=== PATIENT | male | born 1970 | race Caucasian/White ===

== ENCOUNTER → 2020-05-23 09:20 | Outpatient (BNVA) | payer OTHER, SELFPAY | PROVIDERS: Visit Provider Registered Nurse | DX: Z79.899 Other long term (current) drug therapy (principal); F25.0 Schizoaffective disorder, bipolar type; F41.1 Generalized anxiety disorder; G25.79 Other drug induced movement disorders | CPT/HCPCS: 36415; 80053; 80061; 83036; 84443; 85025 ==

== ENCOUNTER → 2020-05-30 11:56 | Outpatient (BNVA) | payer OTHER, SELFPAY | PROVIDERS: Visit Provider Registered Nurse | DX: G25.79 Other drug induced movement disorders (principal); F41.1 Generalized anxiety disorder; F25.0 Schizoaffective disorder, bipolar type; Z79.899 Other long term (current) drug therapy | CPT/HCPCS: 36415; 80053; 80061; 83036; 83721; 84443; 85025 ==

== ENCOUNTER → 2020-06-08 10:07 | Outpatient (BNVA) | payer OTHER, SELFPAY | PROVIDERS: Referring Provider Registered Nurse; Visit Provider Registered Nurse | DX: Z79.899 Other long term (current) drug therapy (principal) | CPT/HCPCS: 36415; 85025 ==

== ENCOUNTER → 2020-06-15 09:39 | Outpatient (BNVA) | payer OTHER, SELFPAY | PROVIDERS: Visit Provider Registered Nurse | DX: Z79.899 Other long term (current) drug therapy (principal) | CPT/HCPCS: 36415; 85025 ==

== ENCOUNTER → 2020-06-22 11:42 | Outpatient (BNVA) | payer OTHER, SELFPAY | PROVIDERS: Visit Provider Registered Nurse | DX: Z79.899 Other long term (current) drug therapy (principal); F25.0 Schizoaffective disorder, bipolar type; F41.1 Generalized anxiety disorder; G25.79 Other drug induced movement disorders | CPT/HCPCS: 36415; 85025 ==

== ENCOUNTER → 2020-06-29 12:45 | Outpatient (BNVA) | payer OTHER, SELFPAY | PROVIDERS: Visit Provider Registered Nurse | DX: Z79.899 Other long term (current) drug therapy (principal) | CPT/HCPCS: 36415; 82306; 85025 ==

== ENCOUNTER → 2020-07-06 10:00 | Outpatient (BNVA) | payer OTHER, SELFPAY | PROVIDERS: Visit Provider Registered Nurse | DX: Z79.899 Other long term (current) drug therapy (principal) | CPT/HCPCS: 36415; 85025 ==

== ENCOUNTER → 2020-07-13 09:47 | Outpatient (BNVA) | payer OTHER, SELFPAY | PROVIDERS: Visit Provider Registered Nurse | DX: F25.0 Schizoaffective disorder, bipolar type (principal); Z79.899 Other long term (current) drug therapy | CPT/HCPCS: 36415; 85025 ==

== ENCOUNTER → 2020-07-18 10:58 | Outpatient (BNVA) | payer OTHER, SELFPAY | PROVIDERS: Visit Provider Registered Nurse | DX: F25.0 Schizoaffective disorder, bipolar type (principal); F41.1 Generalized anxiety disorder; G25.79 Other drug induced movement disorders | CPT/HCPCS: 36415; 85025 ==

== ENCOUNTER → 2020-07-28 12:34 | Outpatient (BNVA) | payer OTHER, SELFPAY | PROVIDERS: Visit Provider Registered Nurse | DX: F25.0 Schizoaffective disorder, bipolar type (principal) | CPT/HCPCS: 36415; 85025 ==

== ENCOUNTER → 2020-08-04 09:35 | Outpatient (BNVA) | payer OTHER, SELFPAY | PROVIDERS: Referring Provider Registered Nurse; Visit Provider Registered Nurse | DX: Z79.899 Other long term (current) drug therapy (principal) | CPT/HCPCS: 36415; 85025 ==

== ENCOUNTER → 2020-08-11 09:35 | Outpatient (BNVA) | payer OTHER, SELFPAY | PROVIDERS: Visit Provider Registered Nurse | DX: Z79.899 Other long term (current) drug therapy (principal) | CPT/HCPCS: 36415; 85025 ==

== ENCOUNTER → 2020-08-17 10:35 | Outpatient (BNVA) | payer OTHER, SELFPAY | PROVIDERS: PCP Family Medicine; Visit Provider Family Medicine | DX: E11.9 Type 2 diabetes mellitus without complications (principal); E78.1 Pure hyperglyceridemia; R00.0 Tachycardia, unspecified; Z79.899 Other long term (current) drug therapy; Z79.4 Long term (current) use of insulin | CPT/HCPCS: 85025 ==

== ENCOUNTER → 2020-08-24 10:29 | Outpatient (BNVA) | payer OTHER, SELFPAY | PROVIDERS: PCP Family Medicine; Visit Provider Registered Nurse | DX: F25.0 Schizoaffective disorder, bipolar type (principal) | CPT/HCPCS: 36415; 85025 ==

== ENCOUNTER → 2020-08-31 14:22 | Outpatient (BNVA) | payer OTHER, SELFPAY | PROVIDERS: PCP Family Medicine; Visit Provider Registered Nurse | DX: F25.0 Schizoaffective disorder, bipolar type (principal) | CPT/HCPCS: 36415; 85025 ==

== ENCOUNTER → 2020-09-07 09:36 | Outpatient (BNVA) | payer OTHER, SELFPAY | PROVIDERS: PCP Family Medicine; Referring Provider Registered Nurse; Visit Provider Registered Nurse | DX: F25.0 Schizoaffective disorder, bipolar type (principal); Z79.899 Other long term (current) drug therapy | CPT/HCPCS: 36415; 85025 ==

== ENCOUNTER → 2020-09-14 09:31 | Outpatient (BNVA) | payer OTHER, SELFPAY | PROVIDERS: PCP Family Medicine; Visit Provider Registered Nurse | DX: Z79.899 Other long term (current) drug therapy (principal) | CPT/HCPCS: 36415; 85025 ==

== ENCOUNTER → 2020-09-22 09:14 | Outpatient (BNVA) | payer OTHER, SELFPAY | PROVIDERS: PCP Family Medicine; Visit Provider Registered Nurse | DX: Z79.899 Other long term (current) drug therapy (principal) | CPT/HCPCS: 36415; 85025 ==

== ENCOUNTER → 2020-09-28 12:37 | Outpatient (BNVA) | payer OTHER, SELFPAY | PROVIDERS: PCP Family Medicine; Visit Provider Registered Nurse | DX: Z79.899 Other long term (current) drug therapy (principal) | CPT/HCPCS: 36415; 85025 ==

== ENCOUNTER → 2020-10-06 09:13 | Outpatient (BNVA) | payer OTHER, SELFPAY | PROVIDERS: PCP Family Medicine; Visit Provider Registered Nurse | DX: Z79.899 Other long term (current) drug therapy (principal) | CPT/HCPCS: 36415; 85025 ==

== ENCOUNTER → 2020-10-12 09:34 | Outpatient (BNVA) | payer OTHER, SELFPAY | PROVIDERS: PCP Family Medicine; Referring Provider Registered Nurse; Visit Provider Registered Nurse | DX: Z79.899 Other long term (current) drug therapy (principal) | CPT/HCPCS: 36415; 85025 ==

== ENCOUNTER → 2020-10-19 09:53 | Outpatient (BNVA) | payer OTHER, SELFPAY | PROVIDERS: PCP Family Medicine; Visit Provider Registered Nurse | DX: Z79.899 Other long term (current) drug therapy (principal) | CPT/HCPCS: 36415; 85025 ==

== ENCOUNTER → 2020-10-25 16:54 | Outpatient (BNVA) | payer OTHER, SELFPAY | PROVIDERS: PCP Family Medicine; Visit Provider Family Medicine | DX: E11.9 Type 2 diabetes mellitus without complications (principal); I10 Essential (primary) hypertension; Z79.4 Long term (current) use of insulin; Z79.899 Other long term (current) drug therapy | CPT/HCPCS: 80053; 83036; 85025 ==

== ENCOUNTER → 2020-11-02 13:26 | Outpatient (BNVA) | payer OTHER, SELFPAY | PROVIDERS: PCP Family Medicine; Visit Provider Registered Nurse | DX: Z79.899 Other long term (current) drug therapy (principal) | CPT/HCPCS: 36415; 85025 ==

== ENCOUNTER → 2020-11-09 10:30 | Outpatient (BNVA) | payer OTHER, SELFPAY | PROVIDERS: PCP Family Medicine; Referring Provider Registered Nurse; Visit Provider Registered Nurse | DX: Z79.899 Other long term (current) drug therapy (principal) | CPT/HCPCS: 36415; 85025 ==

== ENCOUNTER → 2020-11-16 09:44 | Outpatient (BNVA) | payer OTHER, SELFPAY | PROVIDERS: PCP Family Medicine; Visit Provider Registered Nurse | DX: Z79.899 Other long term (current) drug therapy (principal) | CPT/HCPCS: 36415; 85025 ==

== ENCOUNTER → 2020-11-23 09:33 | Outpatient (BNVA) | payer OTHER, SELFPAY | PROVIDERS: PCP Family Medicine; Visit Provider Registered Nurse | DX: Z79.899 Other long term (current) drug therapy (principal) | CPT/HCPCS: 36415; 85025 ==

== ENCOUNTER → 2020-12-07 11:42 | Outpatient (BNVA) | payer OTHER, SELFPAY | PROVIDERS: PCP Family Medicine; Visit Provider Registered Nurse | DX: Z79.899 Other long term (current) drug therapy (principal) | CPT/HCPCS: 36415; 85025 ==

== ENCOUNTER → 2020-12-22 11:16 | Outpatient (BNVA) | payer OTHER, SELFPAY | PROVIDERS: PCP Family Medicine; Visit Provider Registered Nurse | DX: Z79.899 Other long term (current) drug therapy (principal) | CPT/HCPCS: 36415; 85025 ==

== ENCOUNTER → 2021-01-04 10:33 | Outpatient (BNVA) | payer OTHER, SELFPAY | PROVIDERS: PCP Family Medicine; Visit Provider Family Medicine | DX: E11.9 Type 2 diabetes mellitus without complications (principal); Z79.4 Long term (current) use of insulin; Z23 Encounter for immunization | CPT/HCPCS: 36415; 85025 ==

== ENCOUNTER → 2021-01-23 12:45 | Outpatient (BNVA) | payer OTHER, SELFPAY | PROVIDERS: PCP Family Medicine; Visit Provider Emergency Medicine | DX: Z20.822 Contact with and (suspected) exposure to COVID-19 (principal) | CPT/HCPCS: 87635 ==

== ENCOUNTER → 2021-02-15 11:08 | Outpatient (BNVA) | payer OTHER, SELFPAY | PROVIDERS: PCP Family Medicine; Visit Provider Family Medicine | DX: E11.9 Type 2 diabetes mellitus without complications (principal); Z79.4 Long term (current) use of insulin; I10 Essential (primary) hypertension; E78.1 Pure hyperglyceridemia; R00.0 Tachycardia, unspecified | CPT/HCPCS: 80053; 83036; 85025 ==

== ENCOUNTER → 2021-02-27 09:39 | Outpatient (BNVA) | payer OTHER, SELFPAY | PROVIDERS: PCP Family Medicine; Visit Provider Registered Nurse | DX: Z79.899 Other long term (current) drug therapy (principal) | CPT/HCPCS: 36415; 85025 ==

== ENCOUNTER → 2021-03-15 09:21 | Outpatient (BNVA) | payer OTHER, SELFPAY | PROVIDERS: PCP Family Medicine; Visit Provider Family Medicine | DX: Z79.899 Other long term (current) drug therapy (principal) | CPT/HCPCS: 36415; 85025 ==

== ENCOUNTER → 2021-03-29 10:09 | Outpatient (BNVA) | payer OTHER, SELFPAY | PROVIDERS: PCP Family Medicine; Visit Provider Registered Nurse | DX: F25.0 Schizoaffective disorder, bipolar type (principal); Z79.899 Other long term (current) drug therapy | CPT/HCPCS: 85007; 85027 ==

== ENCOUNTER → 2021-04-11 09:32 | Outpatient (BNVA) | payer OTHER, SELFPAY | PROVIDERS: PCP Family Medicine; Visit Provider Registered Nurse | DX: Z79.899 Other long term (current) drug therapy (principal) | CPT/HCPCS: 85007; 85027 ==

== ENCOUNTER → 2021-04-25 09:00 | Outpatient (BNVA) | payer OTHER, SELFPAY | PROVIDERS: PCP Family Medicine; Visit Provider Registered Nurse | DX: Z79.899 Other long term (current) drug therapy (principal); F25.0 Schizoaffective disorder, bipolar type; F41.1 Generalized anxiety disorder | CPT/HCPCS: 85025 ==

== ENCOUNTER → 2021-05-01 10:53 | Outpatient (BNVA) | payer OTHER, SELFPAY | PROVIDERS: PCP Family Medicine; Visit Provider Registered Nurse | DX: Z79.899 Other long term (current) drug therapy (principal) | CPT/HCPCS: 85007; 85027 ==

== ENCOUNTER → 2021-05-03 00:01 | Outpatient (BNVA) | payer OTHER, SELFPAY | PROVIDERS: PCP Family Medicine; Visit Provider Family Medicine | DX: E11.9 Type 2 diabetes mellitus without complications (principal); E55.9 Vitamin D deficiency, unspecified | CPT/HCPCS: 82340 ==

== ENCOUNTER → 2021-05-16 11:26 | Outpatient (BNVA) | payer OTHER, SELFPAY | PROVIDERS: PCP Family Medicine; Visit Provider Registered Nurse | DX: Z79.899 Other long term (current) drug therapy (principal) | CPT/HCPCS: 85007; 85027 ==

== ENCOUNTER → 2021-05-24 09:48 | Outpatient (BNVA) | payer OTHER, SELFPAY | PROVIDERS: PCP Family Medicine; Visit Provider Registered Nurse | DX: Z79.899 Other long term (current) drug therapy (principal) | CPT/HCPCS: 80053; 80061; 82306; 82607; 83036; 83721; 83735; 84443; 85025 ==

== ENCOUNTER → 2021-06-07 10:02 | Outpatient (BNVA) | payer OTHER, SELFPAY | PROVIDERS: PCP Family Medicine; Visit Provider Registered Nurse | DX: Z79.899 Other long term (current) drug therapy (principal) | CPT/HCPCS: 85025 ==

== ENCOUNTER → 2021-06-15 10:15 | Outpatient (BNVA) | payer OTHER, SELFPAY | PROVIDERS: PCP Family Medicine; Visit Provider Registered Nurse | DX: Z79.899 Other long term (current) drug therapy (principal) | CPT/HCPCS: 85025 ==

== ENCOUNTER → 2021-06-28 09:58 | Outpatient (BNVA) | payer OTHER, SELFPAY | PROVIDERS: PCP Family Medicine; Visit Provider Registered Nurse | DX: Z79.899 Other long term (current) drug therapy (principal) | CPT/HCPCS: 85025 ==

== ENCOUNTER → 2021-07-12 09:40 | Outpatient (BNVA) | payer OTHER, SELFPAY | PROVIDERS: PCP Family Medicine; Visit Provider Registered Nurse | DX: Z79.899 Other long term (current) drug therapy (principal) | CPT/HCPCS: 85025 ==

== ENCOUNTER → 2021-07-26 12:17 | Outpatient (BNVA) | payer OTHER, SELFPAY | PROVIDERS: PCP Family Medicine; Visit Provider Registered Nurse | DX: Z79.899 Other long term (current) drug therapy (principal) | CPT/HCPCS: 85025 ==

== ENCOUNTER → 2021-08-10 09:44 | Outpatient (BNVA) | payer OTHER, SELFPAY | PROVIDERS: PCP Family Medicine; Visit Provider Registered Nurse | DX: Z79.899 Other long term (current) drug therapy (principal) | CPT/HCPCS: 85025 ==

== ENCOUNTER → 2021-08-23 10:18 | Outpatient (BNVA) | payer OTHER, SELFPAY | PROVIDERS: PCP Family Medicine; Visit Provider Registered Nurse | DX: Z79.899 Other long term (current) drug therapy (principal) | CPT/HCPCS: 85025 ==

== ENCOUNTER → 2021-09-07 08:57 | Outpatient (BNVA) | payer OTHER, SELFPAY | PROVIDERS: PCP Family Medicine; Visit Provider Registered Nurse | DX: Z79.899 Other long term (current) drug therapy (principal) | CPT/HCPCS: 85025 ==

== ENCOUNTER → 2021-09-27 09:26 | Outpatient (BNVA) | payer OTHER, SELFPAY | PROVIDERS: PCP Family Medicine; Visit Provider Family Medicine | DX: E11.9 Type 2 diabetes mellitus without complications (principal); E78.1 Pure hyperglyceridemia; Z79.4 Long term (current) use of insulin; I10 Essential (primary) hypertension; R00.0 Tachycardia, unspecified; K21.9 Gastro-esophageal reflux disease without esophagitis; E87.1 Hypo-osmolality and hyponatremia; F25.0 Schizoaffective disorder, bipolar type | CPT/HCPCS: 80061; 83721; 85025 ==

== ENCOUNTER → 2021-10-05 08:50 | Outpatient (BNVA) | payer OTHER, SELFPAY | PROVIDERS: PCP Family Medicine; Visit Provider Registered Nurse | DX: Z79.899 Other long term (current) drug therapy (principal) | CPT/HCPCS: 85025 ==

== ENCOUNTER → 2021-11-01 09:17 | Outpatient (BNVA) | payer OTHER, SELFPAY | PROVIDERS: PCP Family Medicine; Visit Provider Registered Nurse | DX: Z79.899 Other long term (current) drug therapy (principal) | CPT/HCPCS: 85025 ==

== ENCOUNTER → 2021-11-13 13:39 | Outpatient (BNVA) | payer OTHER, SELFPAY | PROVIDERS: PCP Family Medicine; Visit Provider Family Medicine | DX: E87.1 Hypo-osmolality and hyponatremia (principal); E11.9 Type 2 diabetes mellitus without complications; Z79.4 Long term (current) use of insulin; I95.1 Orthostatic hypotension; I10 Essential (primary) hypertension; Z86.2 Personal history of diseases of the blood and blood-forming organs and certain disorders involving the immune mechanism | CPT/HCPCS: 85025 ==

== ENCOUNTER → 2021-11-14 09:28 | Outpatient (BNVA) | payer OTHER, SELFPAY | PROVIDERS: PCP Family Medicine; Visit Provider Family Medicine | DX: E11.9 Type 2 diabetes mellitus without complications (principal); Z79.4 Long term (current) use of insulin; E87.1 Hypo-osmolality and hyponatremia; R00.0 Tachycardia, unspecified | CPT/HCPCS: 80048; 83036; 85025 ==

== ENCOUNTER → 2021-12-12 11:13 | Outpatient (BNVA) | payer OTHER, SELFPAY | PROVIDERS: PCP Family Medicine; Visit Provider Registered Nurse | DX: Z79.899 Other long term (current) drug therapy (principal) | CPT/HCPCS: 85025 ==

== ENCOUNTER → 2022-01-10 08:58 | Outpatient (BNVA) | payer OTHER, SELFPAY | PROVIDERS: PCP Family Medicine; Visit Provider Registered Nurse | DX: Z79.899 Other long term (current) drug therapy (principal) | CPT/HCPCS: 85025 ==

== ENCOUNTER → 2022-02-08 10:46 | Outpatient (BNVA) | payer OTHER, SELFPAY | PROVIDERS: PCP Family Medicine; Visit Provider Registered Nurse | DX: Z79.899 Other long term (current) drug therapy (principal); E11.9 Type 2 diabetes mellitus without complications; Z79.4 Long term (current) use of insulin; I10 Essential (primary) hypertension | CPT/HCPCS: 80053; 83036; 85025 ==

== ENCOUNTER → 2022-03-08 09:31 | Outpatient (BNVA) | payer OTHER, SELFPAY | PROVIDERS: PCP Family Medicine; Visit Provider Registered Nurse | DX: Z79.899 Other long term (current) drug therapy (principal) | CPT/HCPCS: 85025 ==

== ENCOUNTER → 2022-04-03 08:33 | Outpatient (BNVA) | payer OTHER, SELFPAY | PROVIDERS: PCP Family Medicine; Visit Provider Registered Nurse | DX: Z79.899 Other long term (current) drug therapy (principal) | CPT/HCPCS: 85025 ==

== ENCOUNTER → 2022-05-08 09:11 | Outpatient (BNVA) | payer OTHER, SELFPAY | PROVIDERS: PCP Family Medicine; Visit Provider Registered Nurse | DX: Z79.899 Other long term (current) drug therapy (principal) | CPT/HCPCS: 85025 ==

== ENCOUNTER → 2022-06-14 09:22 | Outpatient (BNVA) | payer OTHER, SELFPAY | PROVIDERS: PCP Family Medicine; Visit Provider Registered Nurse | DX: Z79.899 Other long term (current) drug therapy (principal) | CPT/HCPCS: 85025 ==

== ENCOUNTER → 2022-07-10 08:42 | Outpatient (BNVA) | payer OTHER, SELFPAY | PROVIDERS: PCP Family Medicine; Visit Provider Family Medicine | DX: K21.9 Gastro-esophageal reflux disease without esophagitis (principal); E11.9 Type 2 diabetes mellitus without complications; Z79.4 Long term (current) use of insulin; E78.1 Pure hyperglyceridemia; Z51.81 Encounter for therapeutic drug level monitoring; F25.0 Schizoaffective disorder, bipolar type | CPT/HCPCS: 80048; 80061; 83036; 83721; 85025 ==

== ENCOUNTER → 2022-08-09 08:01 | Outpatient (BNVA) | payer OTHER, SELFPAY | PROVIDERS: PCP Family Medicine; Visit Provider Registered Nurse | DX: Z79.899 Other long term (current) drug therapy (principal) | CPT/HCPCS: 85025 ==

== ENCOUNTER → 2022-09-06 08:19 | Outpatient (BNVA) | payer OTHER, SELFPAY | PROVIDERS: PCP Family Medicine; Visit Provider Registered Nurse | DX: F25.0 Schizoaffective disorder, bipolar type (principal) | CPT/HCPCS: 85025 ==

== ENCOUNTER → 2022-10-03 07:55 | Outpatient (BNVA) | payer OTHER, SELFPAY | PROVIDERS: PCP Family Medicine; Visit Provider Registered Nurse | DX: Z79.899 Other long term (current) drug therapy (principal) | CPT/HCPCS: 85025 ==

== ENCOUNTER → 2022-11-01 08:33 | Outpatient (BNVA) | payer OTHER, SELFPAY | PROVIDERS: PCP Family Medicine; Visit Provider Registered Nurse | DX: F25.0 Schizoaffective disorder, bipolar type (principal) | CPT/HCPCS: 85025 ==

== ENCOUNTER → 2022-11-20 08:30 | Outpatient (BNVA) | payer OTHER, SELFPAY | PROVIDERS: PCP Family Medicine; Visit Provider Nurse Practitioner | DX: E78.5 Hyperlipidemia, unspecified (principal) | CPT/HCPCS: 80048; 80061; 83036; 83721 ==

== ENCOUNTER → 2022-11-29 08:48 | Outpatient (BNVA) | payer OTHER, SELFPAY | PROVIDERS: PCP Family Medicine; Visit Provider Registered Nurse | DX: F25.0 Schizoaffective disorder, bipolar type (principal) | CPT/HCPCS: 85025 ==

== ENCOUNTER → 2022-12-26 14:15 | Outpatient (BNVA) | payer MEDICARE, SELFPAY | PROVIDERS: PCP Family Medicine; Visit Provider Registered Nurse | DX: Z79.899 Other long term (current) drug therapy (principal); Z12.5 Encounter for screening for malignant neoplasm of prostate | CPT/HCPCS: 85025; G0103 ==

== ENCOUNTER → 2023-01-23 10:23 | Outpatient (BNVA) | payer MEDICARE, SELFPAY | PROVIDERS: PCP Family Medicine; Visit Provider Psychiatry & Neurology Psychiatry | DX: Z79.899 Other long term (current) drug therapy (principal) | CPT/HCPCS: 85025 ==

== ENCOUNTER → 2023-02-21 09:30 | Outpatient (BNVA) | payer MEDICARE, SELFPAY | PROVIDERS: PCP Family Medicine; Visit Provider Psychiatry & Neurology Psychiatry | DX: Z79.899 Other long term (current) drug therapy (principal); F25.0 Schizoaffective disorder, bipolar type | CPT/HCPCS: 85025 ==

== ENCOUNTER → 2023-03-13 09:27 | Outpatient (BNVA) | payer MEDICARE, SELFPAY | PROVIDERS: PCP Family Medicine; Referring Provider Family Medicine; Visit Provider Family Medicine | DX: E78.1 Pure hyperglyceridemia (principal); E11.9 Type 2 diabetes mellitus without complications; Z79.4 Long term (current) use of insulin; N18.9 Chronic kidney disease, unspecified; E78.5 Hyperlipidemia, unspecified; R53.83 Other fatigue; G47.10 Hypersomnia, unspecified | CPT/HCPCS: 80048; 83036; 83721; 84436; 84443; 84478 ==

== ENCOUNTER → 2023-03-21 13:25 | Outpatient (BNVA) | payer MEDICARE, SELFPAY | PROVIDERS: PCP Family Medicine; Visit Provider Psychiatry & Neurology Psychiatry | DX: Z79.899 Other long term (current) drug therapy (principal); F32.A Depression, unspecified; F25.0 Schizoaffective disorder, bipolar type | CPT/HCPCS: 85025 ==

== ENCOUNTER → 2023-04-17 10:35 | Outpatient (BNVA) | payer MEDICARE, SELFPAY | PROVIDERS: PCP Family Medicine; Visit Provider Psychiatry & Neurology Psychiatry | DX: Z79.899 Other long term (current) drug therapy (principal); G25.79 Other drug induced movement disorders | CPT/HCPCS: 85025 ==

== ENCOUNTER → 2023-05-23 09:44 | Outpatient (BNVA) | payer MEDICARE, SELFPAY | PROVIDERS: PCP Family Medicine; Visit Provider Psychiatry & Neurology Psychiatry | DX: Z79.899 Other long term (current) drug therapy (principal) | CPT/HCPCS: 85025 ==

== ENCOUNTER → 2023-06-17 10:35 | Outpatient (BNVA) | payer SELFPAY | PROVIDERS: PCP Family Medicine; Referring Provider Psychiatry & Neurology Psychiatry; Visit Provider Psychiatry & Neurology Psychiatry | DX: Z79.899 Other long term (current) drug therapy (principal) | CPT/HCPCS: 85025 ==

== ENCOUNTER → 2023-06-28 09:49 | Outpatient (BNVA) | payer MEDICARE, SELFPAY | PROVIDERS: PCP Family Medicine; Referring Provider Psychiatry & Neurology Psychiatry; Visit Provider Psychiatry & Neurology Psychiatry | DX: Z79.899 Other long term (current) drug therapy (principal) | CPT/HCPCS: 80053; 83036; 85025 ==

== ENCOUNTER → 2023-07-23 09:17 | Outpatient (BNVA) | payer MEDICARE, SELFPAY | PROVIDERS: PCP Family Medicine; Visit Provider Psychiatry & Neurology Psychiatry | DX: Z79.899 Other long term (current) drug therapy (principal) | CPT/HCPCS: 85025 ==

== ENCOUNTER → 2023-08-22 09:18 | Outpatient (BNVA) | payer MEDICARE, SELFPAY | PROVIDERS: PCP Family Medicine; Visit Provider Psychiatry & Neurology Psychiatry | DX: Z79.899 Other long term (current) drug therapy (principal) | CPT/HCPCS: 85025 ==

== ENCOUNTER → 2023-09-19 09:25 | Outpatient (BNVA) | payer MEDICARE, SELFPAY | PROVIDERS: PCP Family Medicine; Visit Provider Psychiatry & Neurology Psychiatry | DX: Z79.899 Other long term (current) drug therapy (principal); F33.41 Major depressive disorder, recurrent, in partial remission; F41.1 Generalized anxiety disorder; F25.0 Schizoaffective disorder, bipolar type; G25.79 Other drug induced movement disorders | CPT/HCPCS: 85025 ==

== ENCOUNTER → 2023-10-18 09:19 | Outpatient (BNVA) | payer MEDICARE, SELFPAY | PROVIDERS: PCP Family Medicine; Referring Provider Psychiatry & Neurology Psychiatry; Visit Provider Psychiatry & Neurology Psychiatry | DX: Z79.899 Other long term (current) drug therapy (principal) | CPT/HCPCS: 85025 ==

== ENCOUNTER → 2023-11-22 10:23 | Outpatient (BNVA) | payer MEDICARE, SELFPAY | PROVIDERS: PCP Family Medicine; Referring Provider Psychiatry & Neurology Psychiatry; Visit Provider Psychiatry & Neurology Psychiatry | DX: Z79.899 Other long term (current) drug therapy (principal) | CPT/HCPCS: 85025 ==

== ENCOUNTER → 2023-12-23 12:28 | Outpatient (BNVA) | payer MEDICARE, SELFPAY | PROVIDERS: PCP Family Medicine; Visit Provider Psychiatry & Neurology Psychiatry | DX: Z79.899 Other long term (current) drug therapy (principal) | CPT/HCPCS: 85025 ==

== ENCOUNTER → 2023-12-24 08:48 | Outpatient (BNVA) | payer MEDICARE, SELFPAY | PROVIDERS: PCP Family Medicine; Visit Provider Family Medicine | DX: E11.9 Type 2 diabetes mellitus without complications (principal); I10 Essential (primary) hypertension; Z79.4 Long term (current) use of insulin; E87.1 Hypo-osmolality and hyponatremia; N18.2 Chronic kidney disease, stage 2 (mild) | CPT/HCPCS: 80053; 80061; 83036; 83721 ==

== ENCOUNTER → 2024-01-20 09:01 | Outpatient (BNVA) | payer MEDICARE, SELFPAY | PROVIDERS: PCP Family Medicine; Referring Provider Psychiatry & Neurology Psychiatry; Visit Provider Psychiatry & Neurology Psychiatry | DX: Z79.899 Other long term (current) drug therapy (principal) | CPT/HCPCS: 85025 ==

== ENCOUNTER → 2024-02-17 09:11 | Outpatient (BNVA) | payer MEDICARE, SELFPAY | PROVIDERS: PCP Family Medicine; Referring Provider Psychiatry & Neurology Psychiatry; Visit Provider Psychiatry & Neurology Psychiatry | DX: Z79.899 Other long term (current) drug therapy (principal) | CPT/HCPCS: 85025 ==

== ENCOUNTER → 2024-03-24 08:53 | Outpatient (BNVA) | payer MEDICARE, SELFPAY | PROVIDERS: PCP Family Medicine; Visit Provider Psychiatry & Neurology Psychiatry | DX: Z79.899 Other long term (current) drug therapy (principal) | CPT/HCPCS: 85025 ==

== ENCOUNTER → 2024-04-23 09:34 | Outpatient (BNVA) | payer MEDICARE, SELFPAY | PROVIDERS: PCP Family Medicine; Visit Provider Psychiatry & Neurology Psychiatry | DX: Z79.899 Other long term (current) drug therapy (principal); F33.41 Major depressive disorder, recurrent, in partial remission; F41.1 Generalized anxiety disorder; F25.0 Schizoaffective disorder, bipolar type; G25.79 Other drug induced movement disorders | CPT/HCPCS: 85025 ==

== ENCOUNTER → 2024-05-19 10:22 | Outpatient (BNVA) | payer MEDICARE, SELFPAY | PROVIDERS: PCP Family Medicine; Referring Provider Psychiatry & Neurology Psychiatry; Visit Provider Psychiatry & Neurology Psychiatry | DX: Z79.899 Other long term (current) drug therapy (principal) | CPT/HCPCS: 85025 ==

== ENCOUNTER → 2024-06-16 09:33 | Outpatient (BNVA) | payer MEDICARE, SELFPAY | PROVIDERS: PCP Family Medicine; Referring Provider Psychiatry & Neurology Psychiatry; Visit Provider Psychiatry & Neurology Psychiatry | DX: Z79.899 Other long term (current) drug therapy (principal) | CPT/HCPCS: 85025 ==

== ENCOUNTER → 2024-07-20 09:20 | Outpatient (BNVA) | payer MEDICARE, SELFPAY | PROVIDERS: PCP Family Medicine | DX: Z79.899 Other long term (current) drug therapy (principal) | CPT/HCPCS: 85025 ==

== ENCOUNTER → 2024-08-20 09:23 | Outpatient (BNVA) | payer MEDICARE, SELFPAY | PROVIDERS: PCP Family Medicine; Referring Provider Family Medicine | DX: E87.1 Hypo-osmolality and hyponatremia (principal); E11.9 Type 2 diabetes mellitus without complications; Z79.4 Long term (current) use of insulin; I10 Essential (primary) hypertension | CPT/HCPCS: 80053; 80061; 83036; 83721; 83735; 85025 ==

== ENCOUNTER → 2024-09-15 09:03 | Outpatient (BNVA) | payer MEDICARE, SELFPAY | PROVIDERS: PCP Family Medicine | DX: Z79.899 Other long term (current) drug therapy (principal) | CPT/HCPCS: 85025 ==

== ENCOUNTER → 2024-10-14 09:30 | Outpatient (BNVA) | payer MEDICARE, SELFPAY | PROVIDERS: PCP Family Medicine | DX: Z79.899 Other long term (current) drug therapy (principal) | CPT/HCPCS: 85007; 85027 ==

== ENCOUNTER → 2024-11-11 10:50 | Outpatient (BNVA) | payer MEDICARE, SELFPAY | PROVIDERS: PCP Family Medicine | DX: F25.0 Schizoaffective disorder, bipolar type (principal) | CPT/HCPCS: 80159; 85025 ==

== ENCOUNTER → 2024-12-09 09:35 | Outpatient (BNVA) | payer MEDICARE, SELFPAY | PROVIDERS: PCP Family Medicine | DX: Z79.899 Other long term (current) drug therapy (principal) | CPT/HCPCS: 85025 ==

== ENCOUNTER → 2025-01-08 09:42 | Outpatient (BNVA) | payer MEDICARE, SELFPAY | PROVIDERS: PCP Family Medicine | DX: Z79.899 Other long term (current) drug therapy (principal); Z12.5 Encounter for screening for malignant neoplasm of prostate; K21.9 Gastro-esophageal reflux disease without esophagitis; E11.9 Type 2 diabetes mellitus without complications | CPT/HCPCS: 80053; 83036; 85007; 85027; G0103 ==

== ENCOUNTER → 2025-02-04 11:55 | Outpatient (BNVA) | payer MEDICARE, SELFPAY | PROVIDERS: PCP Family Medicine | DX: F25.0 Schizoaffective disorder, bipolar type (principal) | CPT/HCPCS: 85025 ==

== ENCOUNTER → 2025-03-04 12:24 | Outpatient (BNVA) | payer MEDICARE, SELFPAY | PROVIDERS: PCP Family Medicine | DX: Z79.899 Other long term (current) drug therapy (principal) | CPT/HCPCS: 85007; 85027 ==